=== PATIENT | male | born 2000 | race Caucasian/White ===

== ENCOUNTER 2018-10-18 13:20 | Emergency (ER) | payer BC ==
[~2018-10-18] VITALS: Ht 172.7 cm; Wt 93.2 kg
[2018-10-18] MEDS ORDERED: KETOROLAC 30 MG/ML VIAL (J1885) IV ONE (16:00)
[2018-10-18] MEDS ORDERED: NORC1TAB7 PO (16:56)
[2018-10-18] MEDS ORDERED: KETO10TAB PO (16:56)
[2018-10-18] MEDS ORDERED: ONDA4TAB6 PO (16:57)
[2018-10-18] MEDS ORDERED: NORCO, ANEXSIA 5/325MG TABLET (HYDROcodone/ACETAMINOPHEN) PO ONE (17:15)
[2018-10-18 17:42] VITALS: BP 135/86
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
== END 2018-10-18 17:43 | disposition home or self-care (01) ==
LOC: M ED 13:20
DX: S69.91XA Unspecified injury of right wrist, hand and finger(s), initial encounter (principal); S49.92XA Unspecified injury of left shoulder and upper arm, initial encounter; S99.912A Unspecified injury of left ankle, initial encounter; V29.9XXA Motorcycle rider (driver) (passenger) injured in unspecified traffic accident, initial encounter; Y92.9 Unspecified place or not applicable; Y93.9 Activity, unspecified; Y99.9 Unspecified external cause status; Z77.098 Contact with and (suspected) exposure to other hazardous, chiefly nonmedicinal, chemicals
CPT/HCPCS: 70450; 72125; 73030; 73130; 80047; 96374; 99284; J1885